=== PATIENT | female | born 1940 | race Caucasian/White ===

== ENCOUNTER → 2016-03-14 | Outpatient (REF) | payer MEDICARE, OTHER ==
[2016-03-14 10:16] LABS: BASOPHILS % (AUTO) 1 % (0-2); EOSINOPHILS # (AUTO) 0.2 10^3uL; EOSINOPHILS % (AUTO) 3 % (0-4); MEAN PLATELET VOLUME 9.5 FL (6.0-9.5); MONOCYTES # (AUTO) 0.5 X10^3; MONOCYTES % (AUTO) 9 % (3-11); NEUTROPHILS # (AUTO) 2.9 X10^3; NEUTROPHILS % (AUTO) 51 % (51-67); PLATELET COUNT 240 10^3uL (150-450)
[2016-03-14 10:17] LABS: MEAN CORPUSCULAR HEMOGLOBIN 24.1 PG (26.0-34.0); MEAN CORPUSCULAR VOLUME 75 FL (80-100)
[2016-03-14 10:31] LABS: ALBUMIN 3.7 g/dL (3.4-5.0); ANION GAP 14.3 MEQ/L (3-15); CALCULATED IONIZED CALCIUM 4.1 mg/dL (3.8-4.6); TOTAL PROTEIN 6.8 g/dL (6.4-8.5)
== END ==
LOC: LAB 10:07
PROVIDERS: ATTEND Family Medicine
DX: I10 Essential (primary) hypertension (principal); C92.10 Chronic myeloid leukemia, BCR/ABL-positive, not having achieved remission; R60.0 Localized edema; K59.09 Other constipation; R41.89 Other symptoms and signs involving cognitive functions and awareness
CPT/HCPCS: 80053; 84443; 85025

== ENCOUNTER 2016-05-05 17:11 | Emergency (ER) | payer MEDICARE, OTHER ==
[~2016-05-05] VITALS: Ht 162.6 cm; Wt 81.0 kg
[2016-05-05] MEDS ORDERED: ONDANSETRON 2 MG/ML (Z0FRAN) 2 ML VIAL IV ONE (17:55)
[2016-05-05] MEDS ORDERED: SODIUM CHLORIDE FLUSH 3 ML SYR IV PRN (17:55)
[2016-05-05] MEDS ORDERED: HYDROmorphone 1 MG/ML (DILAUDID) SYRINGE IV ONE (17:55)
[2016-05-05 18:14] LABS: BASOPHILS % (AUTO) 0 % (0-2); EOSINOPHILS # (AUTO) 0.2 10^3uL; EOSINOPHILS % (AUTO) 2 % (0-4); MEAN CORPUSCULAR HGB CONC 32.7 g/dL (31.0-37.0); MEAN PLATELET VOLUME 8.9 FL (6.0-9.5); MONOCYTES # (AUTO) 0.8 X10^3; MONOCYTES % (AUTO) 9 % (3-11); NEUTROPHILS # (AUTO) 5.7 X10^3; NEUTROPHILS % (AUTO) 65 % (51-67); PLATELET COUNT 258 10^3uL (150-450); WHITE BLOOD COUNT 8.73 10^3uL (4.0-11.0)
[2016-05-05 18:15] LABS: MEAN CORPUSCULAR HEMOGLOBIN 24.9 PG (26.0-34.0); MEAN CORPUSCULAR VOLUME 76 FL (80-100)
[2016-05-05] MEDS: SODIUM CHLORIDE FLUSH 10 ML SYR IV PRN ×2 (18:15→18:55)
[2016-05-05 18:28] LABS: ALBUMIN 3.8 g/dL (3.4-5.0); ALKALINE PHOSPHATASE 108 U/L (38-126); ANION GAP 14.3 MEQ/L (3-15); BUN/CREATININE RATIO 24 (10-20); CALCULATED IONIZED CALCIUM 3.8 mg/dL (3.8-4.6); CREATINE KINASE 76 U/L (30-135); MAGNESIUM* 1.8 mg/dL (1.6-2.3); TOTAL PROTEIN 7.2 g/dL (6.4-8.5)
[2016-05-05 19:08] VITALS: BP 164/72
== END 2016-05-05 19:05 | disposition home or self-care (01) ==
LOC: ED 17:13
DX: M54.12 Radiculopathy, cervical region (principal); R20.0 Anesthesia of skin; Z87.891 Personal history of nicotine dependence; I50.9 Heart failure, unspecified; R60.0 Localized edema
CPT/HCPCS: 36415; 36591; 71010; 80053; 82550; 82553; 83735; 84443; 84484; 85025; 85610; 85730; 93005; 96374; 96375; 99285; J1170; J1642; J2405; 93010; 99283

== ENCOUNTER → 2016-05-15 | Outpatient (REF) | payer MEDICARE, OTHER ==
[~2016-05-15] MED LIST: AC325T PO; ALBU2.5V4 IH; AMLO10TA82 PO; AZIT250T5 PO; CALC600T PO; CARB1TAB PO; ESOM20CA PO; FENT1PAT9 TD; FNT50TD TD; FURO40TA4 PO; GBPN300C PO; HCT25T PO; HYDR4TAB PO; HYDR4TAB21 PO; IBP200T PO; IPRA0.2S18 IH; LEVO150T6 PO; LINA145C PO; LISI-596 PO; LORA0.5T PO; LVF500T PO; LVT.15T PO; MELO-255 PO; MTP50T PO; NF-ESOM40C PO; NILO200C PO; OMEP20CA12 PO; ONDA-50 PO; POLY17PO6 PO; POTA10CA43 PO; POTA20TA15 PO; PRIM50TA PO; PROC10TA PO; TRAZ-28 PO; TRAZ100T92 PO; VENL75CA PO; VENL75CA86 PO; [UNRECOGNIZED DRUG - CODE] PO
[2016-05-15 09:27] LABS: BASOPHILS % (AUTO) 1 % (0-2); EOSINOPHILS # (AUTO) 0.2 10^3uL; EOSINOPHILS % (AUTO) 1 % (0-4); LYMPHOCYTES # (AUTO) 2.9 X10^3; MEAN CORPUSCULAR HGB CONC 32.1 g/dL (31.0-37.0); MEAN PLATELET VOLUME 8.7 FL (6.0-9.5); MONOCYTES % (AUTO) 8 % (3-11); NEUTROPHILS # (AUTO) 8.7 X10^3; NEUTROPHILS % (AUTO) 67 % (51-67); PLATELET COUNT 409 10^3uL (150-450); WHITE BLOOD COUNT 12.98 10^3uL (4.0-11.0)
[2016-05-15 09:28] LABS: MEAN CORPUSCULAR HEMOGLOBIN 24.9 PG (26.0-34.0); MEAN CORPUSCULAR VOLUME 78 FL (80-100)
[2016-05-15 09:37] LABS: ALBUMIN 4.2 g/dL (3.4-5.0); ANION GAP 14.2 MEQ/L (3-15); CALCULATED IONIZED CALCIUM 3.9 mg/dL (3.8-4.6); TOTAL PROTEIN 7.6 g/dL (6.4-8.5)
== END ==
LOC: LAB 09:22
PROVIDERS: ATTEND Physician Assistant Surgical
DX: R19.5 Other fecal abnormalities (principal)
CPT/HCPCS: 80053; 85025; 87324; 87449

== ENCOUNTER → 2016-06-04 | Outpatient (REF) | payer MEDICARE, OTHER ==
[2016-06-04 11:55] LABS: BILIRUBIN,URINE Negative (Negative); GLUCOSE, URINE (UA) Negative (Negative); LEUKOCYTE ESTERASE ,URINE 1+ (Negative); UROBILINOGEN,URINE 0.2 mg/dL (0.2-1.0)
[2016-06-04 11:56] LABS: CLARITY,URINE Slightly Cloudy; COLOR,URINE Light Yellow
[2016-06-04 12:04] LABS: URINE CENTRIFUGED VOLUME 12 mL
[2016-06-04 12:10] LABS: YEAST,URINE Rare
== END ==
LOC: LAB 11:26
PROVIDERS: ATTEND Family Medicine
DX: R30.0 Dysuria (principal); R82.99 Other abnormal findings in urine
CPT/HCPCS: 81003; 81015; 87077; 87088; 87186